=== PATIENT | female | born 1950 | race Hispanic/Latino ===

== ENCOUNTER 2017-08-19 08:31 | Day surgery (SDC) | payer MEDICARE, BC ==
[2017-08-15 13:24] VITALS: BMI 22.3
[2017-08-19] MEDS ORDERED: Sodium Chloride 0.9% 1,000 ML IV SCH (09:45)
[2017-08-19] MEDS ORDERED: Propofol 10 mg/ml Inj (20 ML) ONE (10:14)
[2017-08-19 12:13] VITALS: O2SAT 100
[2017-08-19 13:29] VITALS: BP 108/74; PULSE 57; RESP 17; TEMP 97.6
== END 2017-08-19 13:15 | disposition home or self-care (01) ==
LOC: ENDO 08:31
PROVIDERS: ATTEND Internal Medicine Gastroenterology
DX: K57.30 Diverticulosis of large intestine without perforation or abscess without bleeding (principal); K59.00 Constipation, unspecified; K64.8 Other hemorrhoids; Z86.010 Personal history of colon polyps
CPT/HCPCS: 45378; J2001; J2704; J7040 ×2